=== PATIENT | female | born 1995 | race Caucasian/White ===

== ENCOUNTER 2017-06-08 11:29 | Emergency (ER) | payer BC ==
[2017-06-08] MEDS ORDERED: OXYCODONE-ACETAMINOPHEN 5-325 MG TABLET PO ONE (11:55)
--- NOTE | 2017-06-08 12:21 | RADIOLOGY REPORT (SQ) ---
EXAM DESCRIPTION: HAND LEFT 2 VIEWS COMPLETED DATE/TIME: 06/08/2017 12:14 pm REASON FOR STUDY: fall, pain COMPARISON: None. EXAM PARAMETERS: NUMBER OF VIEWS: Three views. TECHNIQUE: AP, lateral and oblique radiographic images acquired of the left hand. LIMITATIONS: None. FINDINGS: MINERALIZATION: Normal. BONES: No acute fracture or dislocation. No worrisome bone lesions. JOINTS: No effusions. SOFT TISSUES: No soft tissue swelling. No foreign body. OTHER: No other significant finding. IMPRESSION: NEGATIVE STUDY OF THE LEFT HAND. NO RADIOGRAPHIC EVIDENCE OF ACUTE INJURY. TECHNICAL DOCUMENTATION: JOB ID: [id number] [employer]- All Rights Reserved
--- NOTE | 2017-06-08 12:21 | RADIOLOGY REPORT (SQ) ---
EXAM DESCRIPTION: WRIST LEFT 3 VIEWS COMPLETED DATE/TIME: 06/08/2017 12:14 pm REASON FOR STUDY: fall, pain COMPARISON: None. NUMBER OF VIEWS: Three views. TECHNIQUE: AP, lateral, and oblique radiographic images acquired of the left wrist. LIMITATIONS: None. FINDINGS: MINERALIZATION: Normal. BONES: No acute fracture or dislocation. No worrisome bone lesions. Normal alignment. SOFT TISSUES: No soft tissue swelling. No foreign body. OTHER: No other significant finding. IMPRESSION: NEGATIVE STUDY OF THE LEFT WRIST. NO RADIOGRAPHIC EVIDENCE OF ACUTE INJURY. TECHNICAL DOCUMENTATION: JOB ID: [id number] [employer]- All Rights Reserved
--- NOTE | 2017-06-08 12:49 | ER Document Report ---
ED Hand/Wrist Injury - General Chief Complaint: Wrist Injury Stated Complaint: FALL RIGHT WRIST INJURY Time Seen by Provider: 06/08/17 11:52 TRAVEL OUTSIDE OF THE [place] IN LAST 30 DAYS: No - HPI Injury to: Hand - left, Wrist - left Onset: Just prior to arrival Where: Home - trip Timing: Still present Quality of pain: Throbbing Context: Fall - Related Data Allergies/Adverse Reactions: No Known Allergies Allergy (Verified 06/08/17 11:34) Past Medical History - General Last Menstrual Period: 04/28/17 - Social History Smoking Status: Never Smoker Frequency of alcohol use: None Drug Abuse: None Family History: Reviewed & Not Pertinent Renal/ Medical History: Denies: Hx Peritoneal Dialysis Surgical Hx: Negative - Immunizations Hx Diphtheria, Pertussis, Tetanus Vaccination: Yes Review of Systems - Review of Systems Constitutional: No symptoms reported Musculoskeletal: See HPI Neurological/Psychological: No symptoms reported -: Yes All other systems reviewed and negative Physical Exam - Vital signs Vitals: Temp Pulse Resp BP Pulse Ox 99.2 F 71 16 120/74 100 06/08/17 11:30 06/08/17 11:30 06/08/17 11:30 06/08/17 11:30 06/08/17 11:30 - General General appearance: Appears well, Alert In distress: None - Cardiovascular Pulses: Normal: Radial Normal capillary refill: Yes - Extremities Wrist: Tender, Limited ROM. No: Abrasion, Axial load of thumb pain, Deformity, Dislocation, Ecchymosis, Laceration Hand: Normal, Nontender. No: Abrasion, Deformity, Dislocation, Ecchymosis, Laceration, Swelling, Tendon deficit - Neurological Additional motor exam normals: No: Equal signing agent Course - Re-evaluation Re-evalutation: 06/08/17 13:28 Patient is a 21-year-old female who presents with left wrist pain after fall. No evidence of fracture dislocation noted on x-ray. hand and wrist NVI. Patient with good range of motion after receiving pain medication. Patient asking for splint. Otherwise patient education ice and elevation as well as over-the- counter NSAIDs for pain management. - Vital Signs Vital signs: Temp Pulse Resp BP Pulse Ox 98.5 F 68 14 126/75 H 99 06/08/17 13:07 06/08/17 13:07 06/08/17 13:07 06/08/17 13:07 06/08/17 13:07 - Diagnostic Test Radiology reviewed: Image reviewed, Reports reviewed Discharge - Discharge Clinical Impression: Wrist injury Qualifiers: Encounter type: initial encounter Laterality: left Qualified Code(s): S69.92XA - Unspecified injury of left wrist, hand and finger(s), initial encounter Condition: Good Disposition: HOME, SELF-CARE Instructions: Wrist Sprain ([facility]), Acetaminophen, Use of [employer] Ibuprofen ([facility]), Ice & Elevation ([facility]) Forms: Special Work Note, Return to Work
[2017-06-08 13:08] VITALS: BP 126/75
== END 2017-06-08 12:55 | disposition home or self-care (01) ==
LOC: ER 11:29
DX: S69.92XA Unspecified injury of left wrist, hand and finger(s), initial encounter (principal); W19.XXXA Unspecified fall, initial encounter
CPT/HCPCS: 99283; 73120; 73110; L3908

== ENCOUNTER 2017-08-03 19:17 | Emergency (ER) | payer BC ==
[2017-08-03 19:54] VITALS: BP 128/67
== END 2017-08-03 21:24 | disposition left against medical advice (07) ==
LOC: ER 19:17
DX: Z53.9 Procedure and treatment not carried out, unspecified reason (principal); R20.0 Anesthesia of skin

== ENCOUNTER 2017-12-24 12:48 | Outpatient (CLI) | payer OTHER ==
[2017-12-24 13:37] LABS: AMORPHOUS SEDIMENT,URINE TRACE /HPF; APPEARANCE,URINE SLIGHTLY-CLOUDY; BILIRUBIN,URINE NEGATIVE (NEGATIVE); COLOR,URINE YELLOW; GLUCOSE, URINE 50 mg/dL (NEGATIVE); KETONES,URINE NEGATIVE (NEGATIVE); LEUKOCYTE ESTERASE,URINE NEGATIVE (NEGATIVE); NITRITE,URINE NEGATIVE (NEGATIVE); PROTEIN,URINE NEGATIVE (NEGATIVE); URINE SPECIFIC GRAVITY 1.011; UROBILINOGEN,URINE NEGATIVE mg/dL (<2.0)
[2017-12-24 13:53] LABS: URINE AMPHETAMINES SCREEN NEGATIVE; URINE BARBITURATES SCREEN NEGATIVE; URINE BENZODIAZEPINES SCREEN NEGATIVE; URINE COCAINE SCREEN NEGATIVE; URINE MARIJUANA (THC) SCREEN NEGATIVE; URINE METHADONE SCREEN NEGATIVE; URINE PHENCYCLIDINE SCREEN NEGATIVE
== END 2017-12-24 14:19 | disposition home or self-care (01) ==
LOC: LC 12:48
PROVIDERS: ATTEND Obstetrics & Gynecology
PROC: 4A1HXCZ Monitoring of Products of Conception, Cardiac Rate, External Approach (ICD-10-PCS; principal; 2017-12-24)
DX: O47.03 False labor before 37 completed weeks of gestation, third trimester (principal); O99.89 Other specified diseases and conditions complicating pregnancy, childbirth and the puerperium; M54.9 Dorsalgia, unspecified; Z3A.31 31 weeks gestation of pregnancy
CPT/HCPCS: 80307; 81001; 82962

== ENCOUNTER 2018-02-16 15:49 | Inpatient (IN) | payer OTHER ==
[2018-02-16 16:42] LABS: APPEARANCE,URINE CLEAR; BILIRUBIN,URINE NEGATIVE (NEGATIVE); COLOR,URINE YELLOW; GLUCOSE, URINE NEGATIVE (NEGATIVE); KETONES,URINE NEGATIVE (NEGATIVE); LEUKOCYTE ESTERASE,URINE NEGATIVE (NEGATIVE); NITRITE,URINE NEGATIVE (NEGATIVE); PROTEIN,URINE NEGATIVE (NEGATIVE); URINE SPECIFIC GRAVITY 1.011; UROBILINOGEN,URINE NEGATIVE mg/dL (<2.0)
[2018-02-16] MEDS ORDERED: RINGERS SOLUTION,LACTATED 1,000 ML IV PRN ×2 (16:56→18:35)
[2018-02-16] MEDS ORDERED: LIDOCAINE 1% INJ-PF (10 MG/ML) 30 ML SDV INJ PRN (16:57)
[2018-02-16] MEDS ORDERED: MISOPROSTOL 0.2 MG TABLET PR PRN (16:57)
[2018-02-16] MEDS ORDERED: OXYTOCIN/NORMAL SALINE 20 UNIT/1,000 ML RTUINJ IV PRN ×3 (16:57→18:50)
[2018-02-16 16:58] LABS: URINE AMPHETAMINES SCREEN NEGATIVE; URINE BARBITURATES SCREEN NEGATIVE; URINE BENZODIAZEPINES SCREEN NEGATIVE; URINE COCAINE SCREEN NEGATIVE; URINE MARIJUANA (THC) SCREEN NEGATIVE; URINE METHADONE SCREEN NEGATIVE; URINE PHENCYCLIDINE SCREEN NEGATIVE
[2018-02-16 17:31] LABS: ABSOLUTE LYMPHOCYTES (AUTO) 1.5 10^3/uL (0.5-4.7); ABSOLUTE MONOCYTES (AUTO) 0.7 10^3/uL (0.1-1.4); ABSOLUTE NEUT (AUTO) 9.3 10^3/uL (1.7-8.2); BASOPHILS % (AUTO) 0.3 % (0-2); EOSINOPHILS % (AUTO) 0.3 % (0-6); HEMATOCRIT 37.1 % (36.0-47.0); HEMOGLOBIN 12.8 g/dL (12.0-15.5); LYMPHOCYTES % (AUTO) 13.1 % (13-45); MEAN CORPUSCULAR HEMOGLOBIN 31.3 pg (27.0-33.4); MEAN CORPUSCULAR HGB CONC 34.5 g/dL (32.0-36.0); MEAN CORPUSCULAR VOLUME 91 fl (80-97); PLATELET COUNT 240 10^3/uL (150-450); RED BLOOD COUNT 4.09 10^6/uL (3.72-5.28); RED CELL DISTRIBUTION WIDTH 13.2 % (11.5-14.0); SEGMENTED NEUTROPHILS % (AUTO) 80.3 % (42-78); TOTAL CELLS COUNTED % (AUTO) 100 %; WHITE BLOOD COUNT 11.6 10^3/uL (4.0-10.5)
--- NOTE | 2018-02-16 18:31 | Admission Physical ---
Datetime Report Generated by CPN: 02/16/2018 18:31 CURRENT ADMISSION Chief Complaint: Uterine Contractions; Suspected Ruptured Membranes Indication for Induction: PROM Admit Impression : Term, Intrauterine ; No Active Labor; Ruptured Membranes Admit Plan: Admit to Unit; Initiate Labor Induction Protocol ALLERGIES Medication Allergies: No Medication Allergies: No Known Allergies (12/24/2017) Latex: No Latex Allergies OBSTETRICAL HISTORY EDC: 02/21/2018 00:00 : 1 Para: 0 Term: 0 : 0 SAB: 0 IAB: 0 Ectopic: 0 Livin Cesareans: 0 VBACs: 0 Multiple Births: 0 Gestational Diabetes: No Rh Sensitization: No Incompetent Cervix: No ROLLY: No Infertility: No ART Treatment: No Uterine Anomaly: No IUGR: No Hx Previous C/S: No Macrosomia: No Hx Loss/Stillborn: No PIH: No Hx : No Placenta Previa/Abruption: No Depression/PP Depression: No PTL/PROM: No Post Hemorrhage: No Current Procedures: Ultrasound Obstetrical History Comments: G1-Current SEE RECORDS Alcohol: No Marijuana : No Cocaine: No Other Illicit Drugs: No Cigarettes: Never Smoker. [id number] MEDICAL HISTORY Diabetes: No Blood Transfusion: No Pulmonary Disease (Asthma, TB): No Breast Disease: No Hypertension: No Farmworker Grain Surgery: No Heart Disease: No Hosp/Surgery: No Autoimmune Disorder: No Anesthetic Complications: No Kidney Disease: No Abnormal Pap Smear: No Neuro/Epilepsy: No Psychiatric Disorders: No Other Medical Diseases: No Hepatitis/Liver Disease: No Significant Family History: No Varicosities/Phlebitis: No Trauma/Violence : No Thyroid Dysfunction: No INFECTIOUS HISTORY Gonorrhea: No Genital Herpes: No Chlamydia: No Tuberculosis: No Syphilis: No Hepatitis: No HIV/AIDS Exposure: No Rash or Viral Illness: No HPV: No PHYSICAL EXAM General: Normal HEENT: Normal Neurologic: Normal Thyroid: Normal Heart: Normal Lungs: Normal Breast: Normal Back: Normal Abdomen: Normal Genitourinary Exam: Normal Extremities: Normal DTRs: Normal Pelvic Type: Adequate VAGINAL EXAM Dilatation: 2 Effacement: 60 Station: -2 Contraction Comments: irregular MEMBRANES Pooling: Positive Amniotic Fluid Color: Clear FETUS A EGA: 39.2 Monitoring: External US FHR- Baseline: 120 Variability: Moderate 6-25bpm Accelerations: 15X15 Decelerations: None Estimated Weight (gm): 3500 Presentation: Vertex Admit Comment: 1. Admit labor and delivery 2. PROM - induction of labor 3. GBS negative 4. possible hx of Sjogrens but no testing performed for antibodies - MFM appointment at 30 weeks with negative findings PLANS FOR LABOR AND DELIVERY Labor and Delivery: None Pain Management: Medications Other Pain Management Plans: Pt does NOT want epidural Feeding Preference: Breast Benefit of Breast Feed Discussed: Yes Circumcision: N/A INFORMED CONSENT Signature: with User ID: [email or web address]
[2018-02-16] MEDS ORDERED: OXYTOCIN/NORMAL SALINE 1,000 ML IV PRN (18:35)
[2018-02-16] MEDS ORDERED: RINGERS SOLUTION,LACTATED 300 ML IV ONE (18:35)
[2018-02-16] MEDS ORDERED: OXYTOCIN/NORMAL SALINE 20 UNIT/1,000 ML RTUINJ ONE (18:58)
[2018-02-16] MEDS ORDERED: NALBUPHINE HCL INJ 10 MG/1 ML AMPULE INJ ONE (23:07)
[2018-02-16] MEDS ORDERED: PROMETHAZINE HCL INJ 25 MG/1 ML VIAL IV ONE (23:07)
[2018-02-17] MEDS ORDERED: NALBUPHINE HCL INJ 10 MG/1 ML AMPULE ONE (01:48)
[2018-02-17] MEDS ORDERED: PROMETHAZINE HCL INJ 25 MG/1 ML VIAL ONE (01:48)
[2018-02-17] MEDS ORDERED: LIDOCAINE 1% INJ-PF (10 MG/ML) 30 ML SDV ONE (04:29)
[2018-02-17] MEDS ORDERED: MISOPROSTOL 0.2 MG TABLET ONE (04:29)
[2018-02-17] MEDS ORDERED: DIPH/PERTUSS(ACELL)/TETANUS VAC/PF 0.5 ML SYR (>=10YO) IM PRN (05:43)
[2018-02-17] MEDS ORDERED: DIBUCAINE 1% OINTMENT 28 GM TP PRN (05:43)
[2018-02-17] MEDS ORDERED: OXYTOCIN/NORMAL SALINE 20 UNIT/1,000 ML RTUINJ IV PRN (05:43)
[2018-02-17] MEDS ORDERED: BENZOCAINE/MENTHOL AEROSOL SPRAY 56 ML TOP PRN (05:43)
[2018-02-17] MEDS ORDERED: ZOLPIDEM TARTRATE 5 MG TABLET PO PRN (05:43)
[2018-02-17] MEDS ORDERED: MEASLES,MUMPS&RUBELLA VACC/PF 0.5 ML VIAL SUBCUT PRN (05:43)
[2018-02-17] MEDS ORDERED: ACETAMINOPHEN WITH CODEINE #3 TABLET PO PRN (05:43)
[2018-02-17 05:52] LABS: ARTERIAL BLOOD BASE EXCESS -3.8 mmol/L; ARTERIAL BLOOD H2CO3 1.77 mmol/L (1.05-1.35); ARTERIAL BLOOD HCO3 24.7 mmol/L (20-26); ARTERIAL BLOOD O2 SATURATION 17.7 % (94-98); ARTERIAL BLOOD PCO2 58.9 mmHg (35-45); ARTERIAL BLOOD PH 7.24 (7.35-7.45); ARTERIAL BLOOD TOTAL CO2 26.5 mmol/L (21-25)
[2018-02-17 05:53] LABS: ARTERIAL BLOOD FIO2 CORD BLOOD
--- NOTE | 2018-02-17 05:53 | L&D Progress Notes ---
PROGRESS NOTES Datetime Report Generated by CPN: 02/17/2018 05:53 PROGRESS NOTE Impression: Normal Progression of Labor Procedures- Other: vaginal delivery Plan: Anticipate Vaginal Delivery Vital Signs : Reviewed Comment: Unable to access delivery summary - normal spontaneous vaginal delivery of viable female infant. Apgars 8/8. Small bilateral periurethral lacerations. hemostatic. Otherwise uncomplicated. VAGINAL EXAM Dilatation: 2 Effacement: 60 Station: -2 Contractions: irregular MEMBRANES Pooling: Positive Amniotic Fluid Color: Clear FETUS A : 39.2 Estimated Weight (gm): 3500 Presentation: Vertex SIGNATURE SIGNATURE: [id number];[id number] SIGNATURE: [id number] Signature: with User ID: [email or web address]
[2018-02-17 05:54] LABS: ARTERIAL BLOOD PO2 16.6 mmHg (80-100)
[2018-02-17] MEDS ORDERED: IBUPROFEN 800 MG TABLET ONE (05:59)
[2018-02-17] MEDS: IBUPROFEN 800 MG TABLET PO SCH ×3 (08:11→21:51)
--- NOTE | 2018-02-17 08:39 | Delivery Summary ---
Del Sum A-C Datetime Report Generated by CPN: 02/17/2018 08:39 DELIVERY PERSONNEL DELIVERY PERSONNEL: [id number] Delivery Doctor:: Dr. Roldan Labor and Delivery Nurse:: Soumya Benites RNcrushed stone grader Nurse:: Betzaida Lackey RN Nursery Nurse:: Phyllis Rock RN Nursery Nurse:: Constanza Miranda RN Student Observers:: SN Allison Gun Perforator/ASSISTANT PROFESSOR OF GEOGRAPHY: Pat Jurado, ST MATERNAL INFORMATION Delivery Anesthesia: None Medications After Delivery: Pitocin Drip 20 Units/1000ml NSS Maternal Complications: None LABOR SUMMARY EDC: 02/21/2018 00:00 No. Babies in Womb: 1 Attempted: No Labor Anesthesia: IV Sedation LABOR INFORMATION Reason for Induction: Not Applicable Onset of Labor: 02/16/2018 16:46 Complete Dilatation: 02/17/2018 05:09 Oxytocin: Augmentation Group B Beta Strep: Negative Antibiotics # of Doses: 0 Antibiotics Time of Last Dose: n/a Steroids Given: None Reason Steroids Not Administered: Not Applicable MEMBRANES Membranes Rupture Method: Spontaneous Rupture of Membranes: 02/16/2018 16:46 Length of Rupture (hr): 12.73 Amniotic Fluid Color: Clear Amniotic Fluid Amount: Moderate Amniotic Fluid Odor: Normal STAGES OF LABOR Stage 1 hr: 12 Stage 1 min: 23 Stage 2 hr: 0 Stage 2 min: 21 Stage 3 hr: 0 Stage 3 min: 6 Total Time in Labor hr: 12 Total Time in Labor min: 50 VAGINAL DELIVERY Episiotomy: None Laceration #1: Periurethral Laceration Extension #1: First Degree Laceration Repair: Not Applicable Sponge Count Correct: N/A Sharps Count Correct: N/A CSECTION DELIVERY Primary Indication: N/A Secondary Indication: N/A CSection Incidence: N/A Labor: N/A Elective: N/A CSection Incision: N/A BABY A INFORMATION Delivery Date/Time: 02/17/2018 05:30 Method of Delivery: Vaginal Born in Route : No : N/A Forceps: N/A Vacuum Extraction: N/A Shoulder Dystocia : No PRESENTATION/POSITION BABY A Presentation: Cephalic Cephalic Presentation: Vertex Vertex Position: Left Occipital Anterior Breech Presentation: N/A PLACENTA INFORMATION BABY A Placenta Delivery Time : 02/17/2018 05:36 Placenta Method of Delivery: Spontaneous Placenta Status: Delivered SCORES BABY A Heart Rate 1 min: >100 bpm Resp Effort 1 min: Good Cry Reflex Irritability 1 min: Cough or Sneeze or Pulls Away Muscle Tone 1 min: Active Motion Color 1 min: Blue/Pale Resuscitation Effort 1 min: Tactile Stimulation SCORE 1 MIN: 8 Heart Rate 5 min: >100 bpm Resp Effort 5 min: Good Cry Reflex Irritability 5 min: Cough or Sneeze or Pulls Away Muscle Tone 5 min: Active Motion Color 5 min: Blue/Pale SCORE 5 MIN: 8 INFANT INFORMATION BABY A Gestational Age at Delivery: 39.3 Gestational Status: Full Term- 39- 40.6 Weeks Outcome : Liveborn Condition : Stable Infant Sex: Female IDENTIFICATION BABY A Infant Verification Date/Time: 02/17/2018 05:39 ID Band Number: [id number] Mother's Name Verified: Yes RN Verifying : Tesfaye Ochoa, RN Additional Verifying Personnel: Mitra Lackey RN WEIGHT/LENGTH BABY A Birthweight (gm): 2920 Weight (lb): 6 Infant Weight (oz): 7 Infant Length (in): 19.00 Length (cm): 48.26 CORD INFORMATION BABY A No. 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
--- NOTE | 2018-02-17 09:46 | PDOC PROGRESS REPORT ---
Subjective-OB Progress Note for:: 02/17/18 Subjective: Doing well, feels good, voiding, mod lochia Physical Exam (OB) Vital Signs: Temp Pulse Resp BP Pulse Ox 99.0 F 99 20 130/57 H 97 02/17/18 08:29 02/17/18 08:29 02/17/18 08:29 02/17/18 08:29 02/17/18 08:29 Intake & Output 02/16/18 02/17/18 02/18/18 06:59 06:59 06:59 Weight 87 kg Objective-Diagnostic Laboratory: 02/16/18 17:15 02/16/18 02/16/18 02/16/18 15:56 17:15 17:15 WBC 11.6 H RBC 4.09 Hgb 12.8 Hct 37.1 MCV 91 MCH 31.3 MCHC 34.5 RDW 13.2 Plt Count 240 Seg Neutrophils % 80.3 H Lymphocytes % 13.1 Monocytes % 6.0 Eosinophils % 0.3 Basophils % 0.3 Absolute Neutrophils 9.3 H Absolute Lymphocytes 1.5 Absolute Monocytes 0.7 Absolute Eosinophils 0.0 Absolute Basophils 0.0 Carbonic Acid HCO3/H2CO3 Ratio ABG pH ABG pCO2 ABG pO2 ABG HCO3 ABG O2 Saturation ABG Base Excess FiO2 Urine Color YELLOW Urine Appearance CLEAR Urine pH 6.0 Ur Specific Broad Top 1.011 Urine Protein NEGATIVE Urine Glucose (UA) NEGATIVE Urine Ketones NEGATIVE Urine Blood NEGATIVE Urine Nitrite NEGATIVE Ur Leukocyte Esterase NEGATIVE Blood Type O POSITIVE Antibody Screen NEGATIVE 02/17/18 05:31 WBC RBC Hgb Hct MCV MCH MCHC RDW Plt Count Seg Neutrophils % Lymphocytes % Monocytes % Eosinophils % Basophils % Absolute Neutrophils Absolute Lymphocytes Absolute Monocytes Absolute Eosinophils Absolute Basophils Carbonic Acid 1.77 H HCO3/H2CO3 Ratio 13:1 ABG pH 7.24 L ABG pCO2 58.9 H ABG pO2 16.6 L* ABG HCO3 24.7 ABG O2 Saturation 17.7 L ABG Base Excess -3.8 FiO2 CORD BLOOD Urine Color Urine Appearance Urine pH Ur Specific Broad Top Urine Protein Urine Glucose (UA) Urine Ketones Urine Blood Urine Nitrite Ur Leukocyte Esterase Blood Type Antibody Screen Assessment and Plan(PN) - Time Spent with Patient Time with patient: Less than 15 minutes Medications reviewed and adjusted accordingly: Yes - Disposition Anticipated Discharge: Home Within: within 48 hours
[2018-02-17] MEDS ORDERED: FOLIC PO SCH (10:00)
[2018-02-17] MEDS ORDERED: PRENAT PO SCH (10:00)
[2018-02-17] MEDS ORDERED: PRENATAL VITAMIN W DHA CAPSULE PO SCH (10:00)
[2018-02-17] MEDS ORDERED: IRON FUM PO SCH (10:00)
[2018-02-17] MEDS ORDERED: DSS PO SCH (10:00)
[2018-02-17] MEDS: DOCUSATE SODIUM 100 MG CAPSULE PO SCH ×2 (10:15→17:09)
[2018-02-17] MEDS: SENNOSIDES/DOCUSATE 8.6-50 MG 1 EACH TABLET PO SCH (10:15)
[2018-02-17] MEDS: FERROUS SULFATE 325 MG TABLET PO SCH ×2 (10:15→17:09)
[2018-02-17] MEDS: PRENATAL VITAMIN W DHA CAPSULE PO SCH (10:15)
[2018-02-17] MEDS: ACETAMINOPHEN WITH CODEINE #3 TABLET PO PRN (22:34)
[2018-02-18] MEDS: IBUPROFEN 800 MG TABLET PO SCH ×3 (05:05→22:27)
[2018-02-18 07:30] LABS: HEMATOCRIT 34.1 % (36.0-47.0); HEMOGLOBIN 11.8 g/dL (12.0-15.5); MEAN CORPUSCULAR HEMOGLOBIN 31.7 pg (27.0-33.4); MEAN CORPUSCULAR HGB CONC 34.5 g/dL (32.0-36.0); MEAN CORPUSCULAR VOLUME 92 fl (80-97); PLATELET COUNT 202 10^3/uL (150-450); RED BLOOD COUNT 3.72 10^6/uL (3.72-5.28); RED CELL DISTRIBUTION WIDTH 13.5 % (11.5-14.0); WHITE BLOOD COUNT 10.8 10^3/uL (4.0-10.5)
--- NOTE | 2018-02-18 09:08 | PDOC PROGRESS REPORT ---
Subjective-OB Progress Note for:: 02/18/18 Subjective: s/p day #1 Pt denies concerns, lochia is stable, voiding without difficulty, lochia is stable. Physical Exam (OB) Vital Signs: Temp Pulse Resp BP Pulse Ox 98.4 F 76 18 119/76 100 02/18/18 07:18 02/18/18 07:18 02/18/18 07:18 02/18/18 07:18 02/18/18 07:18 Intake & Output 02/17/18 02/18/18 02/19/18 06:59 06:59 06:59 Weight 87 kg - Lochia Lochia Amount: Small 10-25 ml Lochia Color: Rubra/Red - Abdomen Description: Soft, Flat Hernia Present: No Fundal Description: Firm, Midline Fundal Height: u/u - u/2 Objective-Diagnostic Laboratory: 02/18/18 07:15 02/18/18 07:15 WBC 10.8 H RBC 3.72 Hgb 11.8 L Hct 34.1 L MCV 92 MCH 31.7 MCHC 34.5 RDW 13.5 Plt Count 202 Assessment and Plan(PN) - Assessment and Plan (1) Delivery normal Is this a current diagnosis for this admission?: Yes Plan: lochia is stable - Time Spent with Patient Time with patient: Less than 15 minutes Critical Time spent with patient: Less than 15 minutes Medications reviewed and adjusted accordingly: Yes - Disposition Anticipated Discharge: Home Within: within 24 hours
[2018-02-18] MEDS: SENNOSIDES/DOCUSATE 8.6-50 MG 1 EACH TABLET PO SCH (09:23)
[2018-02-18] MEDS: FERROUS SULFATE 325 MG TABLET PO SCH ×2 (09:23→19:14)
[2018-02-18] MEDS: DOCUSATE SODIUM 100 MG CAPSULE PO SCH ×2 (09:23→19:14)
[2018-02-18] MEDS: PRENATAL VITAMIN W DHA CAPSULE PO SCH (09:24)
[2018-02-18] MEDS: ACETAMINOPHEN WITH CODEINE #3 TABLET PO PRN (11:53)
[2018-02-19] MEDS: IBUPROFEN 800 MG TABLET PO SCH (05:17)
[2018-02-19] MEDS: SENNOSIDES/DOCUSATE 8.6-50 MG 1 EACH TABLET PO SCH (09:09)
[2018-02-19] MEDS: DOCUSATE SODIUM 100 MG CAPSULE PO SCH (09:09)
[2018-02-19] MEDS: PRENATAL VITAMIN W DHA CAPSULE PO SCH (09:09)
[2018-02-19] MEDS: FERROUS SULFATE 325 MG TABLET PO SCH (09:09)
[2018-02-19 09:59] VITALS: BP 132/66
--- NOTE | 2018-02-19 15:43 | PDOC DISCHARGE SUMMARY ---
Final Diagnosis Discharge Date: 02/19/18 - Final Diagnosis (1) Delivery normal Is this a current diagnosis for this admission?: Yes Discharge Data - Discharge Medication Home Medications: Prenat 115/Iron Fum/Folic/Dss [ 19 Tablet] 1 each PO DAILY 02/16/18 Reason(s) for Admission: Onset of Labor, PROM Procedures: Ultrasound Intrapartum Procedure(s): Spontaneous Vaginal Delivery Complication(s): Laceration-Periurethral Laceration-Degree: 1st - Diagnosis Test Laboratory: Temp Pulse Resp BP Pulse Ox 98.3 F 78 20 132/66 H 98 02/19/18 09:16 02/19/18 09:16 02/19/18 09:16 02/19/18 09:16 02/19/18 09:16 02/16/18 02/16/18 02/18/18 15:56 17:15 07:15 RBC 4.09 3.72 Hgb 12.8 11.8 L Hct 37.1 34.1 L Urine Opiates Screen NEGATIVE - Discharge information/Instructions Discharge Activity: Activity As Tolerated, Balance Activity w/Rest, Pelvic Rest , Slowly Increase Activity, No tub bath, Walk Frequently Discharge Diet: Regular Disposition: HOME, SELF-CARE Follow up with: [facility] in: 4, Weeks
== END 2018-02-19 14:08 | disposition home or self-care (01) | DRG 775 ==
LOC: LC 15:49 → LR 17:05 → 2S 02-17 08:15
PROVIDERS: ADMIT Obstetrics & Gynecology; ATTEND Obstetrics & Gynecology
PROC: 10E0XZZ Delivery of Products of Conception, External Approach (ICD-10-PCS; principal; 2018-02-17)
PROC: 0HQ9XZZ Repair Perineum Skin, External Approach (ICD-10-PCS; 2018-02-17)
DX: O69.81X0 Labor and delivery complicated by cord around neck, without compression, not applicable or unspecified (principal); O71.82 Other specified trauma to perineum and vulva; Z3A.39 39 weeks gestation of pregnancy; Z37.0 Single live birth; M35.00 Sjogren syndrome, unspecified
CPT/HCPCS: 36415; 80307; 81005; 82803; 85025; 85027; 86592; 86850; 86900; 86901; J2300; J2550; J2590; J3490

== ENCOUNTER → 2019-04-01 | Outpatient (CLI) | payer OTHER ==
[2019-04-03 12:54] LABS: ABSOLUTE EOSINOPHILS # (AUTO) 0.1 10^3/uL (0.0-0.6); ABSOLUTE LYMPHOCYTES (AUTO) 1.5 10^3/uL (0.5-4.7); ABSOLUTE MONOCYTES (AUTO) 0.4 10^3/uL (0.1-1.4); BASOPHILS % (AUTO) 0.3 % (0-2); EOSINOPHILS % (AUTO) 1.2 % (0-6); HEMATOCRIT 40.3 % (36.0-47.0); HEMOGLOBIN 13.9 g/dL (12.0-15.5); LYMPHOCYTES % (AUTO) 24.7 % (13-45); MEAN CORPUSCULAR HEMOGLOBIN 29.7 pg (27.0-33.4); MEAN CORPUSCULAR HGB CONC 34.5 g/dL (32.0-36.0); MEAN CORPUSCULAR VOLUME 86 fl (80-97); MONOCYTES % (AUTO) 7.2 % (3-13); PLATELET COUNT 305 10^3/uL (150-450); RED BLOOD COUNT 4.67 10^6/uL (3.72-5.28); SEGMENTED NEUTROPHILS % (AUTO) 66.6 % (42-78); TOTAL CELLS COUNTED % (AUTO) 100 %; WHITE BLOOD COUNT 6.1 10^3/uL (4.0-10.5)
[2019-04-03 13:23] LABS: ALANINE AMINOTRANSFERASE 27 U/L (9-52); ALBUMIN 4.6 g/dL (3.5-5.0); ALKALINE PHOSPHATASE 79 U/L (38-126); ANION GAP 12 (5-19); ASPARTATE AMINO TRANSFERASE 21 U/L (14-36); BILIRUBIN,DIRECT 0.3 mg/dL (0.0-0.4); BILIRUBIN,TOTAL 0.6 mg/dL (0.2-1.3); BLOOD UREA NITROGEN 13 mg/dL (7-20); CARBON DIOXIDE 27 mmol/L (22-30); CHLORIDE 102 mmol/L (98-107); GLUCOSE 87 mg/dL (75-110); POTASSIUM 4.2 mmol/L (3.6-5.0); SODIUM 140.8 mmol/L (137-145); TOTAL PROTEIN 7.3 g/dL (6.3-8.2)
== END ==
LOC: OD 11:19
PROVIDERS: ATTEND Family Medicine
DX: R55 Syncope and collapse (principal)
CPT/HCPCS: 36415; 80053; 84443; 85025

== ENCOUNTER → 2019-04-04 | Outpatient (CLI) | payer OTHER ==
--- NOTE | 2019-04-04 15:22 | RADIOLOGY REPORT (SQ) ---
EXAM DESCRIPTION: CT HEAD COMBO COMPLETED DATE/TIME: 04/04/2019 3:11 pm REASON FOR STUDY: G43.109 MIGRAINE WITH AURA, NOT INTRACTABLE, W/O STATUS MIGRAINOSUS G43.109 MIGRA INE WITH AURA, NOT INTRACTABLE, W/O STATUS MIGR COMPARISON: None. TECHNIQUE: Axial images acquired through the brain without and with intravenous contrast. Images re viewed with bone, brain and subdural windows. Additional sagittal and coronal reconstructions were g enerated. Images stored on PACS. All CT scanners at this facility use dose modulation, iterative reconstruction, and/or weight based d osing when appropriate to reduce radiation dose to as low as reasonably achievable (ALARA). [facility]: Dose Right [facility]: CareDose [facility]: Dose Right [facility]: Teradose 4D [facility]: [employer] CONTRAST TYPE AND DOSE: Not recorded here. Refer to lead radiologic technologist nodes. RENAL FUNCTION: BUN 13 creatinine 1 RADIATION DOSE: CT Rad equipment meets quality standard of care and radiation dose reduction techniq ues were employed. CTDIvol: 48.6 - 48.7 mGy. DLP: 2007 mGy-cm.. LIMITATIONS: None. FINDINGS: VENTRICLES: Normal size and contour. CEREBRUM: No masses. No hemorrhage. No midline shift. Normal thorne/white matter differentiation. No ev idence for acute infarction. No enhancing lesions. CEREBELLUM: No masses. No hemorrhage. No alteration of density. No evidence for acute infarction. No enhancing lesions. EXTRA-AXIAL SPACES: No fluid collections. No enhancing lesions. ORBITS AND GLOBE: No intra- or extraconal masses. Normal contour of globe without masses. CALVARIUM: No fracture. PARANASAL SINUSES: No fluid or mucosal thickening. SOFT TISSUES: No mass or hematoma. OTHER: No other significant finding. IMPRESSION: NORMAL BRAIN CT WITHOUT AND WITH CONTRAST. EVIDENCE OF ACUTE STROKE: NO. TECHNICAL DOCUMENTATION: JOB ID: [id number] Quality ID # [id number]: Final reports with documentation of one or more dose reduction techniques (e.g., Au tomated exposure control, adjustment of the mA and/or kV according to patient size, use of iterative reconstruction technique) 2010 [employer]- All Rights Reserved Reading location - IP/workstation name: [email or web address]
== END ==
LOC: RAD 13:54
PROVIDERS: ATTEND Family Medicine
DX: G43.109 Migraine with aura, not intractable, without status migrainosus (principal)
CPT/HCPCS: 70470

== ENCOUNTER → 2019-07-24 | Outpatient (CLI) | payer OTHER ==
[2019-07-24 10:32] LABS: ABSOLUTE EOSINOPHILS # (AUTO) 0.2 10^3/uL (0.0-0.6); ABSOLUTE LYMPHOCYTES (AUTO) 1.9 10^3/uL (0.5-4.7); ABSOLUTE MONOCYTES (AUTO) 0.3 10^3/uL (0.1-1.4); ABSOLUTE NEUT (AUTO) 3.2 10^3/uL (1.7-8.2); BASOPHILS % (AUTO) 0.6 % (0-2); EOSINOPHILS % (AUTO) 3.7 % (0-6); HEMATOCRIT 41.2 % (36.0-47.0); LYMPHOCYTES % (AUTO) 33.1 % (13-45); MEAN CORPUSCULAR HEMOGLOBIN 29.2 pg (27.0-33.4); MEAN CORPUSCULAR HGB CONC 33.9 g/dL (32.0-36.0); MEAN CORPUSCULAR VOLUME 86 fl (80-97); MONOCYTES % (AUTO) 6.1 % (3-13); PLATELET COUNT 269 10^3/uL (150-450); RED BLOOD COUNT 4.78 10^6/uL (3.72-5.28); RED CELL DISTRIBUTION WIDTH 12.7 % (11.5-14.0); SEGMENTED NEUTROPHILS % (AUTO) 56.5 % (42-78); TOTAL CELLS COUNTED % (AUTO) 100 %; WHITE BLOOD COUNT 5.6 10^3/uL (4.0-10.5)
[2019-07-24 11:08] LABS: ERYTHROCYTE SEDIMENTATION RATE 6 mm/hr (0-20)
== END ==
LOC: OD 09:52
PROVIDERS: ATTEND Family Medicine
DX: H04.123 Dry eye syndrome of bilateral lacrimal glands (principal)
CPT/HCPCS: 36415; 84443; 85025; 85652; 86038; 86140; 86430